=== PATIENT | female | born 1970 ===

== ENCOUNTER 2018-04-18 21:19 | Emergency (ER) | payer OTHER ==
[~2018-04-18] VITALS: Ht 157.5 cm; Wt 81.6 kg
[~2018-04-18 21:19] MED LIST: AMBIEN10 MG; CALAN80 MG; COZAAR100 MG; DICLOFENAC SODI50 MG PO; EC-NAPROSYN500 MG; KETO10TA2 PO; METOPROLOL SUCC25 MG PO; NORFLEX100MG PO; ORPHENADRINE30 MG/M1; PEPCID40 MG; RANITIDINE HCL300 M1; SERTRALINE HCL25 MG
[2018-04-18] MEDS ORDERED: ENALAPRIL MALEAT5 MG (21:58)
[2018-04-19] MEDS ORDERED: ZOFRAN ODT4 MG PO (06:24)
[2018-04-19] MEDS ORDERED: PEPCID40 MG PO (06:24)
== END 2018-04-19 06:29 | disposition home or self-care (01) ==
LOC: ER 21:19
DX: R10.13 Epigastric pain (principal)

== ENCOUNTER 2018-05-28 08:20 | Outpatient (CLI) | payer OTHER ==
[~2018-05-28 08:20] MED LIST changes: +ENALAPRIL MALEAT5 MG; +PEPCID40 MG PO; +ZOFRAN ODT4 MG PO
== END 2018-05-28 08:27 | disposition home or self-care (01) ==
LOC: LAB 08:20
DX: D64.89 Other specified anemias (principal); Z23 Encounter for immunization

== ENCOUNTER → 2018-09-28 | Outpatient (CLI) | payer OTHER | END | disposition home or self-care (01) | LOC: MAMO-SONO 14:15 | DX: N63.11 Unspecified lump in the right breast, upper outer quadrant (principal); Z12.31 Encounter for screening mammogram for malignant neoplasm of breast; Z87.898 Personal history of other specified conditions ==

== ENCOUNTER → 2018-10-15 | Emergency (ER) | payer OTHER ==
[~2018-10-15] VITALS: Ht 157.5 cm; Wt 84.4 kg
[~2018-10-15] MED LIST changes: +SIMVASTATIN5 MG
== END | disposition home or self-care (01) ==
LOC: ER 22:31
DX: G62.89 Other specified polyneuropathies (principal); M79.7 Fibromyalgia; R07.89 Other chest pain

== ENCOUNTER 2018-10-18 20:24 | Emergency (ER) | payer OTHER ==
[~2018-10-18] VITALS: Ht 157.5 cm; Wt 82.6 kg
[~2018-10-18 20:24] MED LIST changes: -SIMVASTATIN5 MG
[2018-10-18] MEDS ORDERED: SIMVASTATIN5 MG (20:36)
== END 2018-10-19 01:01 | disposition home or self-care (01) ==
LOC: ER 20:24
DX: R53.81 Other malaise (principal); R07.89 Other chest pain; F32.89 Other specified depressive episodes

== ENCOUNTER 2019-01-06 11:23 | Emergency (ER) | payer OTHER ==
[~2019-01-06] VITALS: Ht 157.5 cm; Wt 83.9 kg
[~2019-01-06 11:23] MED LIST changes: +SIMVASTATIN5 MG
== END 2019-01-06 15:52 | disposition home or self-care (01) ==
LOC: ER 11:23
DX: R53.81 Other malaise (principal)

== ENCOUNTER 2019-02-18 10:21 | Outpatient (CLI) | payer OTHER | END 2019-02-18 10:28 | disposition home or self-care (01) | LOC: RAD 10:21 | DX: M12.871 Other specific arthropathies, not elsewhere classified, right ankle and foot (principal); M12.872 Other specific arthropathies, not elsewhere classified, left ankle and foot ==

== ENCOUNTER 2019-05-17 08:26 | Outpatient (CLI) | payer OTHER | END 2019-05-17 08:36 | disposition home or self-care (01) | LOC: NUCLEAR 08:26 | DX: I73.9 Peripheral vascular disease, unspecified (principal) ==

== ENCOUNTER 2019-05-19 08:01 | Outpatient (CLI) | payer OTHER | END 2019-05-19 08:08 | disposition home or self-care (01) | LOC: NUCLEAR 08:01 | DX: I73.9 Peripheral vascular disease, unspecified (principal) ==

== ENCOUNTER 2019-05-24 07:12 | Outpatient (CLI) | payer OTHER | END 2019-05-24 08:29 | disposition home or self-care (01) | LOC: NUCLEAR 07:12 | DX: M12.9 Arthropathy, unspecified (principal); M41.47 Neuromuscular scoliosis, lumbosacral region | CPT/HCPCS: 78315; A9503 ==

== ENCOUNTER 2019-06-29 07:26 | Emergency (ER) | payer OTHER ==
[~2019-06-29] VITALS: Ht 157.5 cm; Wt 83.9 kg
== END 2019-06-29 12:04 | disposition home or self-care (01) ==
LOC: ER 07:26
DX: B34.9 Viral infection, unspecified (principal)

== ENCOUNTER 2019-10-27 10:40 | Emergency (ER) | payer OTHER ==
[~2019-10-27] VITALS: Ht 157.5 cm; Wt 82.6 kg
[2019-10-27] MEDS ORDERED: CIPRO500 MG PO (15:26)
[2019-10-27] MEDS ORDERED: PEPCID AC20 MG PO (15:26)
[2019-10-27] MEDS ORDERED: INTESTINEX680 M1 PO (15:26)
[2019-10-27] MEDS ORDERED: FLAGYL500MG PO (15:26)
== END 2019-10-27 19:04 | disposition home or self-care (01) ==
LOC: ER 10:40
DX: A08.4 Viral intestinal infection, unspecified (principal); R10.84 Generalized abdominal pain

== ENCOUNTER → 2020-06-15 | Outpatient (CLI) | payer OTHER ==
[~2020-06-15] MED LIST changes: +CIPRO500 MG PO; +FLAGYL500MG PO; +INTESTINEX680 M1 PO; +PEPCID AC20 MG PO
== END | disposition home or self-care (01) ==
LOC: RAD 11:50
PROVIDERS: ATTEND Internal Medicine Cardiovascular Disease
DX: M50.323 Other cervical disc degeneration at C6-C7 level (principal); M12.88 Other specific arthropathies, not elsewhere classified, other specified site

== ENCOUNTER 2020-07-20 13:30 | Emergency (ER) | payer OTHER ==
[~2020-07-20] VITALS: Ht 157.5 cm; Wt 81.6 kg
[2020-07-20] MEDS ORDERED: ADULT ASPIRIN R81 MG PO (13:50)
[2020-07-20] MEDS ORDERED: WELLBUTRIN SR150 MG PO (13:51)
[2020-07-20] MEDS ORDERED: DICLOFENAC SODI75 MG PO (17:07)
[2020-07-20] MEDS ORDERED: NORFLEX100MG PO (17:07)
== END 2020-07-20 17:19 | disposition home or self-care (01) ==
LOC: ER 13:30
DX: M62.830 Muscle spasm of back (principal); M54.2 Cervicalgia